=== PATIENT | female | born 1965 | race Asian ===

== ENCOUNTER 2023-02-02 05:47 | Observation (INO) ==
--- NOTE | 2023-01-16 09:52 | PAT Medication Instructions ---
Medication Instructions Date of Service January 16, 2023 Home Medications Allergy Shots 1 dose UD diphenhydramine HCl 25 mg capsule (ZzzQuil) 25 mg PO HS PRN Sleep fexofenadine 180 mg tablet (Sarahy Allergy) 180 mg PO QAM ibuprofen 125 mg-acetaminophen 250 mg tablet (Advil Dual Action) 2 tab PO Q8H PRN Pain lactobacillus combination no.4 3 billion cell capsule (Probiotic) 3,000 mmu cells PO QAM multivitamin 1 cap PO QAM turmeric 400 mg capsule 400 mg PO QAM Continue as directed Allergy Shots 1 dose UD ASK your surgeon for instructions ibuprofen 125 mg-acetaminophen 250 mg tablet (Advil Dual Action) 2 tab PO Q8H PRN Pain STOP taking 2 weeks before surgery turmeric 400 mg capsule 400 mg PO QAM DO NOT take the morning of surgery fexofenadine 180 mg tablet (Sarahy Allergy) 180 mg PO QAM lactobacillus combination no.4 3 billion cell capsule (Probiotic) 3,000 mmu cells PO QAM multivitamin 1 cap PO QAM Take evening before surgery diphenhydramine HCl 25 mg capsule (ZzzQuil) 25 mg PO HS PRN Sleep (if needed) OTHERWISE NOTHING TO EAT OR DRINK AFTER MIDNIGHT Other Notes If you have any questions please call us at [phone] or [phone] or [phone] or [phone]
--- NOTE | 2023-01-23 09:08 | Anesthesiology Consultation ---
Date of Service January 23, 2023 Assessment & Plan (1) Encounter for pre-operative examination: COVID screening: Per assessment on 01/23: No known COVID-19 positive contacts or current COVID-19 related symptoms. Travel screen- return from [place] 01/21. Patient vaccinated. At surgeon discretion if preop Covid testing being done. Chart Review Chart Review: Acceptable Risk for Surgery and Patient seen in Pre Admission Testing Teaching & Discussion Pre-Anesthesia Teaching/Discussion Notes: Instructed NPO after midnight before surgery,except medications with 15 cc of water. Medication instructions provided according to the PAT guidelines. History Surgery Operation Date: 02/02/23 07:45 Proposed Procedures p C4-C6 Anterior Cervical Discectomy and Fusion, Spinal Cord Monitoring - Edin Fraser DO Height/Weight Height: 5 ft 4 in Weight: 61.3 kg Allergies Allergy/AdvReac Type Severity Reaction Status Date / Time No Known Allergies Allergy Verified 01/16/23 08:32 Medications Home Medications Medication Instructions Recorded Confirmed Last Taken Allergy Shots 1 dose UD 01/16/23 01/16/23 Unknown diphenhydramine HCl 25 mg capsule 25 mg PO HS PRN Sleep 01/16/23 01/16/23 Unknown (ZzzQuil) fexofenadine 180 mg tablet 180 mg PO QAM 01/16/23 01/16/23 Unknown (Sarahy Allergy) ibuprofen 125 mg-acetaminophen 250 2 tab PO Q8H PRN Pain 01/16/23 01/16/23 Unknown mg tablet (Advil Dual Action) lactobacillus combination no.4 3 3,000 mmu cells PO QAM 01/16/23 01/16/23 Unknown billion cell capsule (Probiotic) multivitamin 1 cap PO QAM 01/16/23 01/16/23 Unknown turmeric 400 mg capsule 400 mg PO QAM 01/16/23 01/16/23 Unknown Past Medical History Medical History Cervical stenosis of spine TMJ (temporomandibular joint disorder) Exercise / Class Metabolic Activity II 4-5 Yardwork/Stairs/Walk up hill Past Family History Family History Aunt Family history of ovarian cancer Father Family history of stomach cancer Brother Family history of testicular cancer Grandfather Family history of lung cancer Other Family history of breast cancer in mother Past Surgical History Surgical History History of appendectomy History of colonoscopy History of partial hysterectomy Nausea and vomiting after administration of anesthetic agent Past Anesthesia History No Hx of Anesthesia Complications (except PONV) and No Family Hx of Anesthesia Complications History of PONV No Hx of Motion Sickness and History of PONV STOP BANG Total 1 Social History Smoking Status: Never smoker Do You Dip or Chew Tobacco: No alcohol intake frequency: a few times a month ("social") Hx Substance Use: No substance use type: does not use Review of Systems Patient denies chest pain, shortness of breath, dyspnea on exertion, fever, chills, cough, wheezing, palpitations. Physical Exam Vital Signs VITALS BP 131/79 P 64 TEMP 97.9 SP02 99%RA RESP 16 PHYSICAL Full cervical extension range of motion. Full TMJ range of motion. TMD 3 finger breaths Mallampati Score 1 Dentition: missing molars, + cap (side) Lungs: clear throughout to auscultation Cardiac: regular rate and rhythm, no murmurs noted Spine: normal Carotid arteries: negative bruit Extremities: no LE edema Lab Results Anesthesia Preop Results Results Anesthesia Widget: WBC 7.54 K/ul (4.8-10.8) 01/23/23 Hgb 13.7 g/dl (12.0-16.0) 01/23/23 Hct 40.8 % (37.0-47.0) 01/23/23 Plt 294 K/uL (130-400) 01/23/23 Na 139 mmol/L (136-145) 01/23/23 K 3.6 mmol/L (3.5-5.1) 01/23/23 Cl 106 mmol/L (98-107) 01/23/23 CO2 25 mmol/L (21-32) 01/23/23 BUN 13 mg/dl (6-23) 01/23/23 Creat 0.81 mg/dl (0.6-1.2) 01/23/23 Glucose Level 93 mg/dl (70-99(Fasting)) 01/23/23 PT 10.6 Seconds (9.0-12.0) 01/23/23 PTT 29.6 Seconds (21.0-31.0) 01/23/23 INR 1.0 (0.9-1.1) 01/23/23 Urine Color Yellow 01/23/23 Urine Appearance Clear (Clear) 01/23/23 Urine pH 8.0 (4.5-7.5) H 01/23/23 Urine Specific [place] 1.004 (1.000-1.030) 01/23/23 Urine Protein Negative (Negative) 01/23/23 Urine Glucose (UA) Negative (Negative) 01/23/23 Urine Ketones Negative (Negative) 01/23/23 Urine Blood Negative (Negative) 01/23/23 Urine Nitrite Negative (Negative) 01/23/23 Urine Bilirubin Negative (Negative) 01/23/23 Urine Urobilinogen Negative (Negative) 01/23/23 Urine Leukocyte Esterase Negative (Negative) 01/23/23 Blood Type A Positive 01/23/23 Antibody Screen NEGATIVE 01/23/23 Testing Electrocardiogram Date: 01/23/23 SB at 57bpm. Otherwise normal ECG. Chest X-Ray Date: 01/23/23 Findings: + NAD COVID-19 Risk Screen Screening Information COVID-19 Screen Date: 01/23/23 Exposure 21 Days Family/Household +COVID Last 21 Days: No Exposure 10 Days Any COVID Exposure Last 10 Days: No Symptoms Last 10 Days Experienced COVID Sx Last 10 Days: No + COVID 0-90 Days COVID + in Last 0-90 Days: No
[2023-02-02] MEDS ORDERED: GABAPENTIN 600 MG DOSE PO SCH (06:00)
[2023-02-02] MEDS ORDERED: LR 15ML/HR IV SCH (06:00)
[2023-02-02] MEDS ORDERED: ceFAZolin 2000MG 2,000 MG/15 ML SYR IV SCH (06:00)
[2023-02-02] MEDS ORDERED: CeleBREX 200 MG CAP PO SCH (06:00)
[2023-02-02] MEDS ORDERED: ACETAMINOPHEN 500 MG TAB PO SCH (06:00)
[2023-02-02] MEDS ORDERED: ePHEDrine sulfate 50 MG/ML AMP IV PRN (07:04)
[2023-02-02] MEDS ORDERED: ONDANSETRON INJ 2 MG/ML 2 ML VIAL IV PRN (07:04)
[2023-02-02] MEDS ORDERED: ATROPINE SULFATE 0.1 MG/ML 10ML SYR IV PRN (07:04)
[2023-02-02] MEDS ORDERED: fentaNYL citrate PF 100 MCG/2 ML VIAL ONE (07:07)
[2023-02-02] MEDS ORDERED: MIDAZOLAM HCL 1 MG/ML 2ML VIAL ONE (07:07)
[2023-02-02] MEDS ORDERED: LIDOCAINE 2% 2 ML VIAL/AMP(20MG/ML) INFIL ONE (07:08)
[2023-02-02] MEDS ORDERED: PROPOFOL IV EMULSION 10 MG/ML 100 ML VIAL IV ONE (07:08)
[2023-02-02] MEDS ORDERED: PROPOFOL IV EMULSION 10 MG/ML 20 ML VIAL IV ONE (07:08)
[2023-02-02] MEDS ORDERED: KETAMINE 50 MG/5 ML SYRINGE ONE (07:09)
[2023-02-02] MEDS ORDERED: ROCURONIUM BROMIDE 10 MG/ML 5 ML VIAL IV ONE (07:09)
[2023-02-02] MEDS ORDERED: FAMOTIDINE/PF 20 MG/2 ML VIAL IV ONE (07:15)
[2023-02-02] MEDS ORDERED: LIDOCAINE 2% JELLY 5 ML TUBE EXT ONE (07:15)
[2023-02-02] MEDS ORDERED: ceFAZolin 330 MG/ML 1 GM VIAL ONE (07:38)
--- NOTE | 2023-02-02 07:45 | History & Physical Bridge Note ---
Date of Service February 02, 2023 History & Physical Bridge Note I have examined the patient, reviewed the History & Physical and in the interval since the performance of the History & Physical I have noted the following changes of clinical significance: no changes noted
--- NOTE | 2023-02-02 07:47 | History & Physical Report ---
Date of Service February 02, 2023 Assessment & Plan (1) Encounter for pre-operative examination: Plan C4-C6 anterior cervical discectomy and fusion History of Present Illness Chief Complaint: Neck and arm pain Primary Care Provider: Susanne Valdez DO This is a 57-year-old female who presents with chronic persistent neck and arm pain after failing course of nonoperative care she is here for surgical intervention. Allergies Allergy/AdvReac Type Severity Reaction Status Date / Time gabapentin Allergy Severe Hives Verified 02/02/23 07:00 Home Medications Medication Instructions Recorded Confirmed Type Allergy Shots 1 dose UD 01/16/23 02/02/23 History diphenhydramine HCl 25 mg capsule 25 mg PO HS PRN Sleep 01/16/23 02/02/23 History (ZzzQuil) fexofenadine 180 mg tablet 180 mg PO QAM 01/16/23 02/02/23 History (Sarahy Allergy) ibuprofen 125 mg-acetaminophen 250 2 tab PO Q8H PRN Pain 01/16/23 02/02/23 History mg tablet (Advil Dual Action) lactobacillus combination no.4 3 3,000 mmu cells PO QAM 01/16/23 02/02/23 History billion cell capsule (Probiotic) multivitamin 1 cap PO QAM 01/16/23 02/02/23 History turmeric 400 mg capsule 400 mg PO QAM 01/16/23 02/02/23 History Acetaminophen Extra Strength 500 DIRECTED PRN Pain 02/02/23 History Past Med/Surg History Medical History Cervical stenosis of spine TMJ (temporomandibular joint disorder) Surgical History History of appendectomy History of colonoscopy History of partial hysterectomy Nausea and vomiting after administration of anesthetic agent Family History Aunt Family history of ovarian cancer Father Family history of stomach cancer Brother Family history of testicular cancer Grandfather Family history of lung cancer Other Family history of breast cancer in mother Social History Smoking Status: Never smoker Do You Dip or Chew Tobacco: No; Hx Substance Use: No Preferred Language: Maltese Communication Ability: Effective Mixed Animal Veterinarian Required: No Beliefs That Will Affect Care: None Current Living Situation: Spouse Feels Safe at Home: Yes Assistive Devices: Contacts, Glasses and Other Assistive Devices 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
[2023-02-02] MEDS ORDERED: FLOSEAL HEMOSTATIC MATRIX 10ML TOP ONE (09:06)
--- NOTE | 2023-02-02 09:20 | Operative Report ---
Post Operative Report Pre & Post Diagnosis Operation Date: 02/02/23 07:45 Pre-Op Diagnosis: Cervical spinal stenosis with radiculopathy Post-Op Diagnosis: Same I identified the patient and participated in the time-out.: Yes Procedure Operation Date: 02/02/23 07:45 Actual Procedures 1. Anterior cervical discectomy with bilateral foraminotomies C4-C5 C5-C6. #2 anterior cervical arthrodesis C4-C5 C5-C6. #3 placement of coalition 7 mm interbody cage 7 mm in height filled with I factor at C4-C5 C5-C6. Surgeon Edin Fraser, Product Safety Manager Judy Corley Estimated Blood Loss 10 Findings Consistent with Post-Op Diagnosis Specimens none Indications This is a 57-year-old female that presents with chronic persistent radicular co mplaints after failing course of nonoperative care is here for surgical intervention. Description of Procedure Patient was met with identified informed consent obtained. Patient was then taken to the operative suite underwent patient placed in spine position jacks table with head Gaitan lateral. All bony promises well-padded eyes inspected to ensure no external pressure placed upon the. This point the anterior cervical spine was prepped and draped in a sterile fashion. The assistance of fluoroscopy identified the C5 vertebral body and a transverse incision was placed along the right anterior aspect of the cervical spine overlying this region. Blunt dissection with assistance of bipolar cautery was performed down to and exposing the anterior cervical spine from C4-C6. Self-retaining retractors placed. Then performed complete discectomy of C4-C5 out to the uncovertebral joints bilaterally. [place] distraction pins were utilized to assist in visualization. Removed all posterior annular fibers longitudinal ligament bilateral foraminotomies performed and a 7 mm coalition cage was tapped into position and screwed into place with fluoroscopic visualization. Then proceeded to C5-C6. Again complete discectomy performed out to the uncovertebral joints bilaterally. [place] distracting pins again utilized. Removed all posterior annular fibers longitudinal ligament bilateral foraminotomies performed endplates burred to subcortical bleeding bone and a 7 mm coalition cage filled with I factor tapped in position and screwed into place with fluoroscopic visualization. Distracting apparatus was removed the incision was then explored to ensure no damage to surrounding structures or remaining bleeding 10 round SULEIMAN drain inserted. The incision was then closed with 2 Vicryl in a fashion of 4 Monocryl for final skin closure. Steri-Strips and sterile dressing placed. Patient waken taken to PACU stable condition. Please note spinal cord monitoring visualized at the procedure no changes noted. Lastly Judy Corley was present at the entire surgery involved the patient positioning complex portion of the surgery and final skin closure. I attest to the content of the Intraoperative Record and any orders documented therein. Any exceptions are noted below.
[2023-02-02] MEDS: fentaNYL citrate PF 100 MCG/2 ML VIAL IV PRN ×4 (09:45→10:13)
--- NOTE | 2023-02-02 10:26 | Fluoroscopy Report ---
INTRAOPERATIVE RADIOGRAPHS CLINICAL HISTORY: Cervical spinal fusion. Fluoro time: 13 seconds Ka,r: 0.68 mGy FINDINGS: 2 spot fluoroscopic views of the cervical spine are presented. There has been discectomy at C4-C5 and C5-C6 with anterior fusion at these levels. The orthopedic hardware appears intact. An end otracheal tube is in place. IMPRESSION: Intraoperative images from cervical spinal fusion surgery as above. Electronically signed by: Vladimir Gonzalez M.D. 02/02/2023 10:25 AM
[2023-02-02] MEDS ORDERED: ePHEDrine sulfate 50 MG/ML AMP ONE (10:41)
[2023-02-02] MEDS ORDERED: SUCCINYLCHOLINE CHLORIDE 20 MG/ML 10 ML VIAL IV ONE (10:42)
[2023-02-02] MEDS ORDERED: DEXAMETHASONE SOD INJ 4 MG/ML VIAL ONE (10:43)
[2023-02-02] MEDS ORDERED: ONDANSETRON INJ 2 MG/ML 2 ML VIAL ONE (10:43)
--- NOTE | 2023-02-02 10:51 | Anesthesiology Progress Note ---
Date of Service February 02, 2023 Anesthesia Post Procedure Vital Signs Vital Signs: Temp Pulse Pulse Resp BP Pulse Ox O2 Del Method 02/02/23 10:20 70 14 157/82 H 100 Nasal Cannula 02/02/23 10:10 75 12 163/87 H 100 Oxymask 02/02/23 10:00 70 12 162/81 H 100 Nasal Cannula 02/02/23 10:40 97.5 F L 64 12 145/97 H 100 Nasal Cannula 02/02/23 10:30 67 12 166/77 H 100 Nasal Cannula 02/02/23 09:50 74 12 155/78 H 99 Nasal Cannula 02/02/23 09:40 80 14 153/82 H 100 Oxymask 02/02/23 09:33 96.8 F L 82 18 150/70 H 99 Oxymask 02/02/23 06:34 98.1 F 66 20 152/77 H 99 Room Air O2 Flow Rate 02/02/23 10:20 2 02/02/23 10:10 2 02/02/23 10:00 2 02/02/23 10:40 2 02/02/23 10:30 2 02/02/23 09:50 2 02/02/23 09:40 6 02/02/23 09:33 6 02/02/23 06:34 Pain Intensity Left Lateral Neck: Pain Intensity: 4 Neck: Pain Intensity: 5 Transfer of Care Handoff Completed per policy Notes Mental Status: alert / awake / arousable and participated in evaluation Patient Amnestic to Procedure: Yes Nausea / Vomiting: adequately controlled Pain: adequately controlled Airway Patency, RR, SpO2: stable & adequate BP & HR: stable & adequate Hydration State: stable & adequate Anesthetic Complications: no major complications apparent and Pt Satisfied with anesthetic care
[2023-02-02] MEDS: LACTATED RINGER'S 1,000 ML IV SCH ×2 (11:30→23:05)
[2023-02-02] MEDS ORDERED: MAGNESIUM HYDROXIDE SUSP 30 ML UDC PO PRN (12:18)
[2023-02-02] MEDS ORDERED: PROMETHAZINE HCL 12.5 MG in SODIUM CHLORIDE 0.9% 50 ML IV PRN (12:18)
[2023-02-02] MEDS ORDERED: ALUMINUM/MAGNESIUM SUSP 30 ML UDC PO PRN (12:18)
[2023-02-02] MEDS ORDERED: ACETAMINOPHEN 500 MG TAB PO PRN (12:18)
[2023-02-02] MEDS ORDERED: hydrOXYzine HCl 25 MG TAB PO PRN (12:18)
[2023-02-02] MEDS ORDERED: HYDROmorphone INJ 0.5 MG/0.5 ML SYR IV PRN (12:18)
[2023-02-02] MEDS ORDERED: ONDANSETRON 4 MG OD TAB PO PRN (12:18)
[2023-02-02] MEDS ORDERED: bisacodyL 10 MG SUPP PR PRN (12:18)
[2023-02-02] MEDS ORDERED: HYDROmorphone INJ 1 MG/ML SYRINGE IV PRN (12:18)
[2023-02-02] MEDS ORDERED: ACETAMINOPHEN 1,000 MG/100 ML VIAL IV PRN (12:18)
[2023-02-02] MEDS ORDERED: METOCLOPRAMIDE HCL INJ 5 MG/ML 2 ML VIAL IV PRN (12:18)
[2023-02-02] MEDS ORDERED: RACEPINEPHRINE 2.25% NEBU SOLN 0.5 ML VIAL INH PRN (12:18)
[2023-02-02] MEDS ORDERED: DO NOT ADMINISTER FLU VACCINE PRN (12:18)
[2023-02-02] MEDS ORDERED: dexAMETHasone 8 MG in SYRINGE 0 ML IV PRN (12:18)
[2023-02-02] MEDS ORDERED: oxyCODONE HCL IR 5 MG TAB (IMMEDIATE RELEASE) PO PRN (12:18)
[2023-02-02] MEDS ORDERED: SOD PHOSPHATE/SOD BIPHOSPHATE ENEMA 132 ML BTL PR PRN (12:18)
[2023-02-02] MEDS ORDERED: NALOXONE HCL 0.4 MG/1 ML VIAL/CARP IV PRN (12:18)
[2023-02-02] MEDS ORDERED: LORazepam 0.5 MG TAB PO PRN (12:18)
[2023-02-02] MEDS ORDERED: LORazepam 2 MG/1 ML VIAL IV PRN (12:18)
[2023-02-02] MEDS ORDERED: DO NOT ADMINISTER PNEUMOCOCCAL VACCINE PRN (12:18)
[2023-02-02] MEDS ORDERED: diphenhydrAMINE Capsule 25 MG CAP PO PRN ×2 (12:18)
[2023-02-02] MEDS ORDERED: FAMOTIDINE 20 MG TAB PO PRN (12:18)
[2023-02-02] MEDS: ONDANSETRON INJ 2 MG/ML 2 ML VIAL IV PRN (14:03)
[2023-02-02] MEDS: traMADol HCL 50 MG TABLET PO PRN ×2 (16:24→20:10)
[2023-02-02] MEDS: ceFAZolin 1000MG 1,000 MG/7.5 ML SYR IV SCH ×3 (16:24→23:04)
[2023-02-02] MEDS ORDERED: DOCUSATE SODIUM/SENNA 50/8.6MG TAB PO SCH (21:00)
[2023-02-03] MEDS: ONDANSETRON INJ 2 MG/ML 2 ML VIAL IV PRN (00:30)
[2023-02-03] MEDS: traMADol HCL 50 MG TABLET PO PRN (05:53)
[2023-02-03] MEDS ORDERED: POLYETHYLENE (MIRALAX) 17 GM PACK PO SCH (06:00)
[2023-02-03] MEDS ORDERED: FEXOFENADINE HCL 180 MG TAB PO SCH (09:00)
--- NOTE | 2023-02-03 14:31 | Discharge Summary ---
Date of Service February 03, 2023 Admission HPI Per Admitting Provider This is a 57-year-old female who presents with chronic persistent neck and arm pain after failing course of nonoperative care she is here for surgical intervention. Principal Diagnosis Cervical radiculopathy Discharge Data Allergies Allergy/AdvReac Type Severity Reaction Status Date / Time gabapentin Allergy Severe Hives Verified 02/02/23 07:00 Procedures Performed Operation Date: 02/02/23 07:45 Actual Procedures p C4-C6 Anterior Cervical Discectomy and Fusion, Spinal Cord Monitoring(Not Applicable) - Edin Fraser DO Ordered Studies 02/02/23 07:45 [place] cervical 2-3V Routine Hospital Course (1) Encounter for pre-operative examination: Patient went anterior cervical discectomy and fusion tolerated this well was taken to the orthopedic floor postoperative. Postop day 1 she was up and ambulating swallowing well. No hoarseness. Arm symptoms markedly improved. SULEIMAN drain decreasing appropriate. + Strength testing. Subsidy discharged home. Discharge orders instructions from the chart for further review. Total Time Total Time Spent Total Time Spent (In Minutes): 20 minutes Discharge Plan Discharge Items Patient Disposition: Home - Self-Care Reason For Visit: Spinal Stenosis, Cervical Region Discharge Diagnosis: cervical radiculopathy Activity: As commented below Non-emergency contact: Primary Care Provider Call non-emergency contact if: you have any medication questions Follow-up/Referrals: Susanne Valdez DO [Primary Care Provider] - Diet: Regular Addtl Attending Provider Instructions: ACTIVITY RECOMMENDATIONS: SELF CARE INSTRUCTIONS AFTER CERVICAL FUSIONS 1. No smoking. Smoking drastically decreases the chance of a solid fusion. 2. No bending, lifting more than 5 pounds, or twisting (roll like a log when turning in bed). 3. You may shower 3 days after surgery. Thoroughly dry wound. Do not soak in the tub. 4. Cervical collar: Must be worn at all times including sleeping. You may remove the brace only to bath, eat and if you are sitting in a recliner. 5. Please walk as much as you can for exercise. Gradually increase the distance that you walk as your endurance increases. SPECIAL CARE INSTRUCTIONS: VERY IMPORTANT TO READ AND REVIEW A. Do not take any anti-inflammatory medications (i.e. Indocin, Advil, Aspirin, Naprosyn, Aleve, Motrin, etc.) as these may inhibit the chance of a solid fusion. Tylenol is okay to take. B. Your surgical incision has been closed with a cosmetic suture under the skin that will dissolve in about 6 weeks. In 14 days, you can use a pair of clean scissors and cut the suture that is left outside of the skin at the ends of your incision. C. Complications are uncommon, but please contact us if you have any signs or symptoms of: 1. wound infection (fever higher than 102.5 degrees F, redness, separation of wound, drainage, or increasing pain from the incision) 2. blood clots in legs (pain, swelling, redness and warmth in legs) 3. urinary tract infection (fever higher than 102.5 degrees, burning upon urination or increased frequency of urination) 4. nerve problems (inability to walk on your toes or heels, numbness, loss of bowel or bladder control) 5. any other symptoms that concern you. D. Please call the office at if you have any concerns or questions about your operation or recovery. MANAGING PAIN AFTER SPINAL SURGERY 1. Narcotic medication is intended for short-term use and will be provided for surgical pain. Surgical pain usually lasts for a period of 4-6 weeks. Narcotic medication includes Percocet, Vicodin, Darvocet, Tylenol #3 or Lortab. 2. Longer-term pain is more appropriately treated with non-narcotic medication such as Tylenol ES. 3. Muscle spasm is not appropriately treated with narcotics. Muscle relaxers such as Soma, Flexeril or Skelaxin can be used along with Tylenol ES. 4. Remember that we all live with some "aches and pains". This is not unusual or uncommon after an injury or as we get older. 5. We will provide appropriate medication within the normal guidelines of their prescribed use. We will also be very cautious and aware of potential abuse and extended duration of patients' medication needs. 6. Please allow 2-3 days to process refills. Prescriptions will not be mailed but must be picked up at the office. FOLLOW UP VISIT: Keep your scheduled follow-up appointment. Any questions, please call the office at . Pending Studies at Discharge: No Stand-Alone Forms: [employer], Smoking Cessation Medications and DC Order Prescriptions: New tramadol 50 mg tablet 50 mg PO Q6H PRN (Reason: pain, moderate) Qty: 30 0RF oxycodone 5 mg tablet 5 mg PO Q6H PRN (Reason: pain) Qty: 30 0RF Continued Allergy Shots 1 dose UD fexofenadine [Sarahy Allergy] 180 mg Tablet 180 mg PO QAM multivitamin Capsule 1 cap PO QAM Probiotic 3 billion cell Capsule 3,000 mmu cells PO QAM Rx Instructions: administer with a meal turmeric 400 mg Capsule 400 mg PO QAM Advil Dual Action 125-250 mg Tablet 2 tab PO Q8H PRN (Reason: Pain) diphenhydramine HCl [ZzzQuil] 25 mg Capsule 25 mg PO HS PRN (Reason: Sleep) Acetaminophen Extra Strength 500 DIRECTED PRN (Reason: Pain) Discharge Orders: Discharge Order (Routine); Ordered 02/03/23 Ordered By: Edin Glynn/Other Patient Handouts: Tramadol Oral Tablet, Cervical Disk Surg Dc Admission Data Admit Date/Time: 02/02/23 09:24 Attending Provider: Edin Fraser Admit Provider: Edin Fraser Primary Care Provider: Susanne Valdez Other Interventions: Discharge Summary Assessment (RN) Last Done: 02/03/23 12:11
== END 2023-02-03 13:21 | disposition home or self-care (01) ==
LOC: ASU 05:47 → 3E 05:47